=== PATIENT | female | born 1965 | race Caucasian/White ===

== ENCOUNTER 2023-09-18 01:45 | Emergency (ER) | payer OTHER ==
[~2023-09-18] VITALS: Ht 162.6 cm; Wt 90.7 kg
[2023-09-18 02:10] VITALS: BP 162/87; PULSE 67; RESP 16; TEMP 98.1; O2SAT 97
[2023-09-18 02:35] VITALS: O2SAT 97
[2023-09-18] MEDS ORDERED: LIDOCAINE 4% PATCH 1 EA PATCH TP ONE (02:55)
[2023-09-18] MEDS ORDERED: KETOROLAC 30 MG/ML VIAL IM ONE (02:55)
[2023-09-18] MEDS ORDERED: CYCL-711 PO (03:37)
[2023-09-18] MEDS ORDERED: IBUP-2218 PO (03:37)
[2023-09-18] MEDS ORDERED: ACET-10509 PO (03:37)
== END 2023-09-18 03:50 | disposition home or self-care (01) ==
LOC: MED 01:45
DX: M54.41 Lumbago with sciatica, right side (principal); E11.9 Type 2 diabetes mellitus without complications; I10 Essential (primary) hypertension; Z79.4 Long term (current) use of insulin; Z79.899 Other long term (current) drug therapy
CPT/HCPCS: 96372; 99283; J1885